=== PATIENT | female | born 1960 | race Caucasian/White ===

== ENCOUNTER 2017-06-27 11:25 | Emergency (ER) | payer OTHER ==
[~2017-06-27] VITALS: Ht 157.5 cm; Wt 83.9 kg
[~2017-06-27 11:25] MED LIST: AMLO1TAB PO; AMLO5TAB PO; CLON0.1T79 PO; FENO134C2 PO; IBUP-974 PO; LANTUS SUBQ; LORA-476 PO; LOSA25TA14 PO; [UNRECOGNIZED DRUG - OTHER] SUBQ
[2017-06-27 11:36] VITALS: BP 161/105
--- NOTE | 2017-06-27 11:43 | NUR ---
Patient ambulated to bed 8. RN evaluating patient at bedside.
--- NOTE | 2017-06-27 11:47 | NUR ---
PATIENT PRESENTS TO ED WITH C/O WEAKNESS SINCE LAST NOC . PT STATES SHE WAS BITTEN BY A BUG LAST NOC, AND HAS BEEN FEELING WEAK SINCE THAT TIME, BUT IS UNSURE IF THE INSECT BITE AND WEAKNESS ARE RELATED . DENIES N/V/D; MULTIPLE INSECT BITES NOTED TO RIGHT CALF, SKIN IS OTHERWISE PINK/WARM/DRY; AAOX4 WITH EVEN AND STEADY GAIT; LUNGS CLEAR BL; HR EVEN AND REGULAR; PT DENIES ANY FEVER, CP, SOB, OR COUGH AT THIS TIME; PATIENT STATES PAIN OF 8/10 AT THIS TIME; VSS; PATIENT POSITIONED FOR COMFORT; HOB ELEVATED; BEDRAILS UP X2; BED DOWN. ER MD MADE AWARE OF PT STATUS.
[2017-06-27] MEDS ORDERED: KETOROLAC 60 MG/2 ML VIAL IM ONE (12:05)
[2017-06-27 13:10] VITALS: BP 144/96
--- NOTE | 2017-06-27 13:10 | NUR ---
Patient discharged with v/s stable. Written and verbal after care instructions given and explained.Patient alert, oriented and verbalized understanding of instructions. Ambulatory with steady gait. All questions addressed prior to discharge. ID band removed. Patient advised to follow up with PMD. Rx of motrin, benadryl given. Patient educated on indication of medication including possible reaction and side effects. Opportunity to ask questions provided and answered.
== END 2017-06-27 13:10 | disposition home or self-care (01) ==
LOC: MED 11:25
DX: M54.5 Low back pain (principal); R53.1 Weakness; R21 Rash and other nonspecific skin eruption; J45.909 Unspecified asthma, uncomplicated; E78.00 Pure hypercholesterolemia, unspecified; E11.9 Type 2 diabetes mellitus without complications; I10 Essential (primary) hypertension; Z90.49 Acquired absence of other specified parts of digestive tract; Z79.4 Long term (current) use of insulin; Z79.899 Other long term (current) drug therapy
CPT/HCPCS: 81002; 81025; 96372; 99283; J1885

== ENCOUNTER 2018-07-22 01:15 | Emergency (ER) | payer OTHER ==
[~2018-07-22] VITALS: Ht 157.5 cm; Wt 86.2 kg
[2018-07-22 01:15] VITALS: BP 215/128
--- NOTE | 2018-07-22 01:15 | NUR ---
PT BIB BLS TO ER BED 2.
--- NOTE | 2018-07-22 01:15 | NUR ---
BIB EMS. PT CALLED 911 AFTER TAKING AN ADDITIONAL 18 UNITS. PT STATES N/V X1 DAY WITH SEVERE GASTON X1 DAY. HER HOME BLOOD GLUCOSE WAS 418. SHE TOOK TOO MUCH INSULIN AND DID NOT TAKE HOME ANTIHYPERTENSIVE MEDS D/T N/V. PT IS A&OX4. AMBULATED FROM [facility] TO BED 2. ER AWARE. CONTINUE TO MONITOR.
[2018-07-22] MEDS ORDERED: diphenhydrAMINE 50 MG/ML VIAL IVP ONE (01:30)
[2018-07-22] MEDS ORDERED: METOCLOPRAMIDE 10 MG/2 ML INJ VIAL IVP ONE (01:30)
[2018-07-22] MEDS ORDERED: LORazepam 2 MG/ML VIAL IVP ONE (01:30)
[2018-07-22] MEDS ORDERED: ONDANSETRON 4 MG/2 ML VIAL IVP ONE (01:30)
[2018-07-22] MEDS ORDERED: KETOROLAC 30 MG/ML VIAL IVP ONE (01:30)
[2018-07-22] MEDS ORDERED: cloNIDine 0.1 MG TAB PO ONE (01:30)
--- NOTE | 2018-07-22 01:34 | NUR ---
EKG PERFORMED AT BEDSIDE. PT COVERED IN GOWN DURING PROCEDURE
[2018-07-22 02:38] LABS: PROTHROMBIN TIME 9.8 secs (10.8-13.4)
[2018-07-22 02:43] LABS: ALBUMIN 3.5 g/dL (3.4-5.0); ANION GAP 12.6 (8-16); CARBON DIOXIDE 24.6 mmol/L (21-32); POTASSIUM 3.2 mmol/L (3.5-5.1); TOTAL BILIRUBIN 0.8 mg/dL (0.0-1.0)
[2018-07-22 02:44] LABS: HEMATOCRIT 41.5 % (36-48); MEAN CORPUSCULAR HEMOGLOBIN 32 pg (27-31); MEAN CORPUSCULAR HGB CONC 34 g/dL (33-37); MEAN CORPUSCULAR VOLUME 95.6 fL (80-94); PLATELET COUNT (AUTO) 328 K/uL (140-450); RED BLOOD CELL COUNT(AUTO) 4.33 MIL/uL (4.20-5.40); RED CELL DISTRIBUTION WIDTH 13.3 % (11.6-13.7); WHITE BLOOD COUNT (AUTO) 11.5 K/uL (4.8-10.8)
[2018-07-22 02:45] LABS: BASOPHILS % (AUTO) 0.2 % (0.0-2.0); EOSINOPHILS # (AUTO) 0.5 K/uL (0-0.4); LYMPHOCYTES # (AUTO) 2.5 K/uL (2.5-16.5); LYMPHOCYTES % (AUTO) 21.3 % (20.5-51.1); MONOCYTES # (AUTO) 0.6 K/uL (0.8-1.0); MONOCYTES % (AUTO) 5.1 % (1.7-9.3); NEUTROPHILS # (AUTO) 7.9 K/uL (1.8-7.7); NEUTROPHILS % (AUTO) 69.4 % (42.2-75.2)
[2018-07-22] MEDS ORDERED: POTASSIUM CHLORIDE 20% 40 MEQ/15 ML UDC PO ONE (04:00)
--- NOTE | 2018-07-22 04:15 | NUR ---
AWAITING DISCHARGE DIRECTIONS FROM DR LONGO.
[2018-07-22 05:22] VITALS: BP 116/59
--- NOTE | 2018-07-22 05:22 | NUR ---
Patient discharged with v/s stable. Written and verbal after care instructions given and explained. Patient alert, oriented and verbalized understanding of instructions. Ambulatory with steady gait. All questions addressed prior to discharge. ID band removed. Patient advised to follow up with PMD. Rx of Porfirio, Clonidine, Zofran, and Ativan given. Patient educated on indication of medication including possible reaction and side effects. Opportunity to ask questions provided and answered.
== END 2018-07-22 05:22 | disposition home or self-care (01) ==
LOC: MED 01:15
DX: I16.0 Hypertensive urgency (principal); J45.909 Unspecified asthma, uncomplicated; E11.9 Type 2 diabetes mellitus without complications; I10 Essential (primary) hypertension; Z86.73 Personal history of transient ischemic attack (TIA), and cerebral infarction without residual deficits; Z88.0 Allergy status to penicillin; Z79.899 Other long term (current) drug therapy
CPT/HCPCS: 36415; 70450; 71045; 80053; 83880; 84484; 85025; 85610; 85730; 93005; 96374; 96375; 99285; J1200; J1885; J2060; J2405; J2765; Q0092; 81002; 81025

== ENCOUNTER 2020-07-30 00:55 | Emergency (ER) | payer OTHER ==
[~2020-07-30] VITALS: Ht 157.5 cm; Wt 108.9 kg
[~2020-07-30 00:55] MED LIST changes: -LOSA25TA14 PO; +LOSA25TA32 PO
--- NOTE | 2020-07-30 00:58 | NUR ---
PT JOHANN BLS. TAKEN TO BED 7
--- NOTE | 2020-07-30 00:58 | NUR ---
Dr. Knott examining patient.
[2020-07-30 01:05] VITALS: BP 164/89
[2020-07-30] MEDS ORDERED: hydrOXYzine PAMOATE 25 MG CAP PO SCH (01:20)
--- NOTE | 2020-07-30 01:20 | NUR ---
providing relief for primary nurse Cherri ULONG. assumed pt care at this time.
--- NOTE | 2020-07-30 01:20 | NUR ---
60 year old female biba for c/o anxiety attack x 2 hours. states started around 2300 last night when she attempted to sleep and felt like she was not breathing. pt tachypneic upon triage in the 30s but now normal. respirations even and unlabored. CBL sounds. all other systems WNL. Awaiting MSE. pmhx: anxiety, HTN, DM, HLD,asthma allx: PCN
[2020-07-30 01:32] LABS: BASOPHILS # (AUTO) 0.1 K/uL (0.00-0.22); BASOPHILS % (AUTO) 0.6 % (0.0-2.0); EOSINOPHILS # (AUTO) 0.7 K/uL (0-0.4); EOSINOPHILS % (AUTO) 5.8 % (0.0-4.0); HEMATOCRIT 39.1 % (36-48); HEMOGLOBIN 13.6 g/dL (12.0-16.0); LYMPHOCYTES % (AUTO) 25.6 % (20.5-51.1); MEAN CORPUSCULAR HEMOGLOBIN 33 pg (27-31); MEAN CORPUSCULAR HGB CONC 35 g/dL (33-37); MEAN CORPUSCULAR VOLUME 94.6 fL (80-94); MONOCYTES # (AUTO) 0.8 K/uL (0.8-1.0); MONOCYTES % (AUTO) 6.6 % (1.7-9.3); NEUTROPHILS # (AUTO) 7.3 K/uL (1.8-7.7); NEUTROPHILS % (AUTO) 61.4 % (42.2-75.2); PLATELET COUNT (AUTO) 296 K/uL (140-450); RED BLOOD CELL COUNT(AUTO) 4.13 MIL/uL (4.20-5.40); RED CELL DISTRIBUTION WIDTH 13.4 % (11.6-13.7); WHITE BLOOD COUNT (AUTO) 11.9 K/uL (4.8-10.8)
--- NOTE | 2020-07-30 01:49 | NUR ---
Jovanni oneal in [facility] - 07/30/20 at 0156 by [facility] xr at bedside.
[2020-07-30 01:51] LABS: ALBUMIN 3.5 g/dL (3.4-5.0); ANION GAP 17.5 (8-16); CARBON DIOXIDE 22.6 mmol/L (21-32); POTASSIUM 3.1 mmol/L (3.5-5.1); TOTAL BILIRUBIN 0.5 mg/dL (0.0-1.0)
--- NOTE | 2020-07-30 01:52 | NUR ---
X-Ray at bedside.
[2020-07-30] MEDS ORDERED: PANTOPRAZOLE 40 MG INJ VIAL IVP ONE (02:10)
--- NOTE | 2020-07-30 02:24 | NUR ---
pt ambulated to restroom w/ steady gait.
--- NOTE | 2020-07-30 03:00 | NUR ---
IV removed, catheter intact and site benign. Applied folded 4x4 gauze and tape to stop bleeding.
[2020-07-30 03:04] VITALS: BP 172/85
--- NOTE | 2020-07-30 03:04 | NUR ---
Patient discharged with v/s stable. Written and verbal after care instructions given and explained. Patient alert, oriented and verbalized understanding of instructions. Ambulatory with steady gait. All questions addressed prior to discharge. ID band removed. Patient advised to follow up with PMD. Rx of PROTONIX given. Patient educated on indication of medication including possible reaction and side effects. Opportunity to ask questions provided and answered.
== END 2020-07-30 03:04 | disposition home or self-care (01) ==
LOC: MED 00:55
DX: R06.02 Shortness of breath (principal); K21.9 Gastro-esophageal reflux disease without esophagitis; J45.909 Unspecified asthma, uncomplicated; I11.0 Hypertensive heart disease with heart failure; E11.9 Type 2 diabetes mellitus without complications; Z86.73 Personal history of transient ischemic attack (TIA), and cerebral infarction without residual deficits; Z88.0 Allergy status to penicillin; Z79.899 Other long term (current) drug therapy
CPT/HCPCS: 36415; 71045; 80053; 84484; 85025; 93005; 96374; 99285; C9113; Q0092; Q0163

== ENCOUNTER 2020-11-01 13:44 | Emergency (ER) | payer OTHER ==
[~2020-11-01] VITALS: Ht 157.5 cm; Wt 90.7 kg
[2020-11-01 14:18] VITALS: BP 171/91
[2020-11-01] MEDS ORDERED: IBUPROFEN 600 MG TAB PO ONE (14:30)
--- NOTE | 2020-11-01 15:10 | NUR ---
Patient discharged with v/s stable. Written and verbal after care instructions about muscle strain and cervical sprain given and explained. Patient alert, oriented and verbalized understanding of instructions. Ambulatory with steady gait. All questions addressed prior to discharge. ID band removed. Patient advised to follow up with PMD. Rx of ibuprofen and flexeril given. Patient educated on indication of medication including possible reaction and side effects. Opportunity to ask questions provided and answered.
[2020-11-01 15:13] VITALS: BP 171/91
== END 2020-11-01 15:10 | disposition home or self-care (01) ==
LOC: MED 13:44
DX: S16.1XXA Strain of muscle, fascia and tendon at neck level, initial encounter (principal); S46.912A Strain of unspecified muscle, fascia and tendon at shoulder and upper arm level, left arm, initial encounter; S46.911A Strain of unspecified muscle, fascia and tendon at shoulder and upper arm level, right arm, initial encounter; J45.909 Unspecified asthma, uncomplicated; E11.9 Type 2 diabetes mellitus without complications; I10 Essential (primary) hypertension; Z88.0 Allergy status to penicillin; Z79.4 Long term (current) use of insulin; Z79.899 Other long term (current) drug therapy; Z86.73 Personal history of transient ischemic attack (TIA), and cerebral infarction without residual deficits; V89.2XXA Person injured in unspecified motor-vehicle accident, traffic, initial encounter; Y93.89 Activity, other specified; Y92.89 Other specified places as the place of occurrence of the external cause; Y99.8 Other external cause status
CPT/HCPCS: 99283

== ENCOUNTER 2022-01-03 16:33 | Emergency (ER) | payer OTHER ==
[~2022-01-03] VITALS: Ht 157.5 cm; Wt 94.3 kg
[~2022-01-03 16:33] MED LIST changes: +FENO134C18 PO; -FENO134C2 PO
[2022-01-03 16:48] VITALS: BP 201/104
--- NOTE | 2022-01-03 16:56 | NUR ---
PT AMB TO BED 12.
--- NOTE | 2022-01-03 18:52 | NUR ---
PATIENT PRESENTS TO ED WITH C/O DIZZINESS X TODAY AND C/O 8/10 MID CHEST PAIN RADIATING TO LEFT ARM X 3 DAYS. DENIES N/V/D; SKIN IS PINK/WARM/DRY; AAOX4 WITH EVEN AND STEADY GAIT; HR EVEN AND REGULAR; PT DENIES ANY FEVER, CP, SOB, OR COUGH AT THIS TIME; PATIENT POSITIONED FOR COMFORT; HOB ELEVATED; BEDRAILS UP X2; BED DOWN. ER MD MADE AWARE OF PT STATUS. PMH: HTN, DM, ANXIETY, ASTHMA, C SECTION, GALL BLADDER REMOVAL ALLERGY: PCN
[2022-01-03 19:03] LABS: BASOPHILS % (AUTO) 0.4 % (0.0-2.0); EOSINOPHILS # (AUTO) 0.1 K/uL (0-0.4); EOSINOPHILS % (AUTO) 1.1 % (0.0-4.0); HEMATOCRIT 39.8 % (36-48); HEMOGLOBIN 13.9 g/dL (12.0-16.0); LYMPHOCYTES # (AUTO) 2.3 K/uL (2.5-16.5); LYMPHOCYTES % (AUTO) 23.5 % (20.5-51.1); MEAN CORPUSCULAR HEMOGLOBIN 33 pg (27-31); MEAN CORPUSCULAR HGB CONC 35 g/dL (33-37); MEAN CORPUSCULAR VOLUME 95.6 fL (80-94); MONOCYTES # (AUTO) 0.5 K/uL (0.8-1.0); MONOCYTES % (AUTO) 5.3 % (1.7-9.3); NEUTROPHILS # (AUTO) 6.8 K/uL (1.8-7.7); NEUTROPHILS % (AUTO) 69.7 % (42.2-75.2); PLATELET COUNT (AUTO) 316 K/uL (140-450); RED BLOOD CELL COUNT(AUTO) 4.17 MIL/uL (4.20-5.40); RED CELL DISTRIBUTION WIDTH 13.2 % (11.6-13.7); WHITE BLOOD COUNT (AUTO) 9.8 K/uL (4.8-10.8)
--- NOTE | 2022-01-03 19:31 | NUR ---
Pt report given to CHERISE HAY. Transfer of care at this time.
[2022-01-03 19:38] LABS: ALBUMIN 3.6 g/dL (3.4-5.0); ANION GAP 15.1 (8-16); CARBON DIOXIDE 23.4 mmol/L (21-32); CREATININE 0.8 mg/dL (0.6-1.3); POTASSIUM 3.5 mmol/L (3.5-5.1); TOTAL BILIRUBIN 0.7 mg/dL (0.0-1.0)
[2022-01-03] MEDS: KETOROLAC 30 MG/ML VIAL IM ONE (20:14)
[2022-01-03] MEDS: CYCLOBENZAPRINE 10 MG TAB PO ONE (20:15)
[2022-01-03] MEDS: LIDOCAINE 5% 1 EA PATCH TP ONE (20:16)
[2022-01-03] MEDS ORDERED: CYCL-711 PO (21:57)
[2022-01-03] MEDS ORDERED: IBUP-2213 PO (21:57)
[2022-01-03] MEDS ORDERED: LID5T TP (21:57)
--- NOTE | 2022-01-03 22:08 | NUR ---
PATIENT CLEARED FOR DISHCARGE AT THIS TIME. ADVIZED TO FOLLOW UP WITH PCP AND RETURN IF CONDITION WORSENS. NO OTHER COMPLAINTS OR CONECRNS AFTER DISCHARGE TEACHING.
[2022-01-03 22:09] VITALS: BP 137/80
== END 2022-01-03 22:08 | disposition home or self-care (01) ==
LOC: MED 16:33
DX: R07.89 Other chest pain (principal); G89.29 Other chronic pain; M25.512 Pain in left shoulder; E11.9 Type 2 diabetes mellitus without complications; I11.9 Hypertensive heart disease without heart failure; J45.909 Unspecified asthma, uncomplicated; Z88.0 Allergy status to penicillin
CPT/HCPCS: 36415; 71045; 73030; 80053; 84484; 85025; 93005; 96372; 99285; J1885

== ENCOUNTER 2022-05-20 09:22 | Emergency (ER) | payer OTHER ==
[~2022-05-20] VITALS: Ht 157.5 cm; Wt 81.6 kg
[~2022-05-20 09:22] MED LIST changes: +CYCL-711 PO; +IBUP-2213 PO; +LID5T TP
[2022-05-20 09:25] VITALS: BP 159/92
--- NOTE | 2022-05-20 09:27 | NUR ---
[facility]
--- NOTE | 2022-05-20 09:49 | NUR ---
DR ANDRADE AT BEDSIDE FOR EVALUATION
[2022-05-20] MEDS ORDERED: MIDAZOLAM 2 MG/2 ML VIAL IVP ONE (09:55)
--- NOTE | 2022-05-20 10:04 | NUR ---
LAB AT BEDSIDE
--- NOTE | 2022-05-20 10:11 | NUR ---
RADIOLOGY AT BEDSIDE
[2022-05-20 10:56] LABS: BASOPHILS % (AUTO) 0.5 % (0.0-2.0); EOSINOPHILS # (AUTO) 0.3 K/uL (0-0.4); EOSINOPHILS % (AUTO) 2.9 % (0.0-4.0); HEMATOCRIT 40.2 % (36-48); HEMOGLOBIN 14.1 g/dL (12.0-16.0); LYMPHOCYTES # (AUTO) 2.4 K/uL (2.5-16.5); LYMPHOCYTES % (AUTO) 23.9 % (20.5-51.1); MEAN CORPUSCULAR HEMOGLOBIN 33 pg (27-31); MEAN CORPUSCULAR HGB CONC 35 g/dL (33-37); MONOCYTES # (AUTO) 0.5 K/uL (0.8-1.0); MONOCYTES % (AUTO) 5.5 % (1.7-9.3); NEUTROPHILS # (AUTO) 6.8 K/uL (1.8-7.7); NEUTROPHILS % (AUTO) 67.2 % (42.2-75.2); PLATELET COUNT (AUTO) 295 K/uL (140-450); RED BLOOD CELL COUNT(AUTO) 4.23 MIL/uL (4.20-5.40); RED CELL DISTRIBUTION WIDTH 13.1 % (11.6-13.7); WHITE BLOOD COUNT (AUTO) 10.1 K/uL (4.8-10.8)
[2022-05-20 11:00] LABS: ALBUMIN 3.3 g/dL (3.4-5.0); ANION GAP 14.6 (8-16); ASPARTATE AMINOTRANSFERASE 18 U/L (15-37); CARBON DIOXIDE 23.2 mmol/L (21-32); CHLORIDE 102 mmol/L (98-107); CREATININE 0.9 mg/dL (0.6-1.3); GFR ARICAN-AMERICAN 82 mL/min (>90); GLUCOSE 310 mg/dL (74-106); POTASSIUM 3.8 mmol/L (3.5-5.1); SODIUM SERUM 136 mmol/L (136-145); TOTAL BILIRUBIN 0.7 mg/dL (0.0-1.0); UREA NITROGEN, BLOOD 13 mg/dL (7-18)
--- NOTE | 2022-05-20 13:31 | NUR ---
PT AMBULATED TO RESTROOM WITH STEADY GAIT.
[2022-05-20] MEDS ORDERED: HYDR-637 PO (13:39)
[2022-05-20 14:19] VITALS: BP 142/90
--- NOTE | 2022-05-20 14:20 | NUR ---
Patient discharged with v/s stable. Written and verbal after care instructions given and explained. Patient alert, oriented and verbalized understanding of instructions. Ambulatory with steady gait. All questions addressed prior to discharge. ID band removed. Patient advised to follow up with PMD. Rx of hydroxyzine given. Patient educated on indication of medication including possible reaction and side effects. Opportunity to ask questions provided and answered.
== END 2022-05-20 14:20 | disposition home or self-care (01) ==
LOC: MED 09:22
DX: R07.9 Chest pain, unspecified (principal); F41.9 Anxiety disorder, unspecified; I10 Essential (primary) hypertension; J45.909 Unspecified asthma, uncomplicated; E11.9 Type 2 diabetes mellitus without complications; I25.10 Atherosclerotic heart disease of native coronary artery without angina pectoris; Z86.73 Personal history of transient ischemic attack (TIA), and cerebral infarction without residual deficits; Z79.4 Long term (current) use of insulin; Z79.899 Other long term (current) drug therapy
CPT/HCPCS: 36415; 71045; 80053; 84484; 85025; 93005; 96374; 99285; J2250

== ENCOUNTER 2022-10-27 18:19 | Emergency (ER) | payer OTHER ==
[~2022-10-27] VITALS: Ht 157.5 cm; Wt 94.8 kg
[~2022-10-27 18:19] MED LIST changes: -FENO134C18 PO; +FENO134C23 PO; +HYDR-637 PO
[2022-10-27 18:33] VITALS: BP 170/95
[2022-10-27] MEDS ORDERED: NAPR-54 PO (20:49)
[2022-10-27] MEDS ORDERED: CYCL-711 PO (20:49)
--- NOTE | 2022-10-27 21:17 | NUR ---
PT SEEN AND ASSESSED BY EDA GABRIEL. Written and verbal after care instructions given and explained. Patient alert, oriented and verbalized understanding of instructions. Ambulatory with steady gait. All questions addressed prior to discharge. ID band removed. Patient advised to follow up with PMD. Rx of FLEXERIL AND NAPROXEN given. Patient educated on indication of medication including possible reaction and side effects. Opportunity to ask questions provided and answered.
== END 2022-10-27 21:17 | disposition home or self-care (01) ==
LOC: MED 18:19
DX: S83.92XA Sprain of unspecified site of left knee, initial encounter (principal); S83.91XA Sprain of unspecified site of right knee, initial encounter; M25.531 Pain in right wrist; J45.909 Unspecified asthma, uncomplicated; I10 Essential (primary) hypertension; E11.9 Type 2 diabetes mellitus without complications; E78.00 Pure hypercholesterolemia, unspecified; Z86.73 Personal history of transient ischemic attack (TIA), and cerebral infarction without residual deficits; W18.30XA Fall on same level, unspecified, initial encounter; Y93.89 Activity, other specified; Y92.89 Other specified places as the place of occurrence of the external cause; Y99.8 Other external cause status
CPT/HCPCS: 73110; 73562; 99284

== ENCOUNTER 2022-11-01 19:28 | Emergency (ER) | payer OTHER ==
[~2022-11-01] VITALS: Ht 157.5 cm; Wt 94.8 kg
[~2022-11-01 19:28] MED LIST changes: +NAPR-54 PO
[2022-11-01] MEDS ORDERED: TRAM-748 PO (19:57)
--- NOTE | 2022-11-01 20:02 | NUR ---
D/C BY . Patient discharged with v/s stable. Written and verbal after care instructions given and explained. Patient alert, oriented and verbalized understanding of instructions. Ambulatory with steady gait. All questions addressed prior to discharge. ID band removed. Patient advised to follow up with PMD. Rx of TRAMADOL given. Patient educated on indication of medication including possible reaction and side effects. Opportunity to ask questions provided and answered.
== END 2022-11-01 20:02 | disposition home or self-care (01) ==
LOC: MED 19:28
DX: S83.91XA Sprain of unspecified site of right knee, initial encounter (principal); J45.909 Unspecified asthma, uncomplicated; E11.9 Type 2 diabetes mellitus without complications; I10 Essential (primary) hypertension; Z86.73 Personal history of transient ischemic attack (TIA), and cerebral infarction without residual deficits; Z86.69 Personal history of other diseases of the nervous system and sense organs; Z79.899 Other long term (current) drug therapy; Z79.891 Long term (current) use of opiate analgesic; Z79.1 Long term (current) use of non-steroidal anti-inflammatories (NSAID); Z79.4 Long term (current) use of insulin; Z88.0 Allergy status to penicillin; W18.39XA Other fall on same level, initial encounter; Y92.89 Other specified places as the place of occurrence of the external cause; Y93.89 Activity, other specified; Y99.8 Other external cause status
CPT/HCPCS: 99283

== ENCOUNTER 2023-09-23 16:04 | Emergency (ER) | payer OTHER ==
[~2023-09-23] VITALS: Ht 157.5 cm; Wt 90.7 kg
[~2023-09-23 16:04] MED LIST changes: +TRAM-748 PO
[2023-09-23 17:06] LABS: BASOPHILS # (AUTO) 0.1 K/uL (0.00-0.22); BASOPHILS % (AUTO) 0.7 % (0.0-2.0); EOSINOPHILS # (AUTO) 0.6 K/uL (0-0.4); EOSINOPHILS % (AUTO) 5.4 % (0.0-4.0); HEMATOCRIT 41.2 % (36-48); HEMOGLOBIN 14.4 g/dL (12.0-16.0); LYMPHOCYTES # (AUTO) 2.6 K/uL (2.5-16.5); LYMPHOCYTES % (AUTO) 22.9 % (20.5-51.1); MEAN CORPUSCULAR HEMOGLOBIN 34 pg (27-31); MEAN CORPUSCULAR HGB CONC 35 g/dL (33-37); MEAN CORPUSCULAR VOLUME 95.9 fL (80-94); MONOCYTES # (AUTO) 0.5 K/uL (0.8-1.0); MONOCYTES % (AUTO) 4.8 % (1.7-9.3); NEUTROPHILS # (AUTO) 7.4 K/uL (1.8-7.7); NEUTROPHILS % (AUTO) 66.2 % (42.2-75.2); PLATELET COUNT (AUTO) 320 K/uL (140-450); RED BLOOD CELL COUNT(AUTO) 4.29 MIL/uL (4.20-5.40); RED CELL DISTRIBUTION WIDTH 13.5 % (11.6-13.7); WHITE BLOOD COUNT (AUTO) 11.2 K/uL (4.8-10.8)
[2023-09-23] MEDS ORDERED: LIDOCAINE 4% PATCH 1 EA PATCH TP ONE (17:10)
[2023-09-23] MEDS ORDERED: ACETAMINOPHEN EXTRA STRENGTH 500 MG TAB PO ONE (17:10)
[2023-09-23 17:22] LABS: ALBUMIN 3.7 g/dL (3.4-5.0); ANION GAP 13.9 (8-16); CARBON DIOXIDE 26.7 mmol/L (21-32); CREATININE 0.9 mg/dL (0.6-1.3); POTASSIUM 3.6 mmol/L (3.5-5.1)
[2023-09-23 17:24] VITALS: BP 158/86; PULSE 100; RESP 18; TEMP 97.8; O2SAT 97
[2023-09-23] MEDS ORDERED: ACET-10509 PO (18:09)
[2023-09-23] MEDS ORDERED: CYCL-711 PO (18:09)
[2023-09-23] MEDS ORDERED: LID5T TP (18:09)
[2023-09-23 18:31] VITALS: BP 134/82; PULSE 100; RESP 17; TEMP 98.1; O2SAT 97
== END 2023-09-23 18:28 | disposition home or self-care (01) ==
LOC: MED 16:04
DX: S29.011A Strain of muscle and tendon of front wall of thorax, initial encounter (principal); I10 Essential (primary) hypertension; J45.909 Unspecified asthma, uncomplicated; E78.00 Pure hypercholesterolemia, unspecified; E11.9 Type 2 diabetes mellitus without complications; F41.9 Anxiety disorder, unspecified; Z86.73 Personal history of transient ischemic attack (TIA), and cerebral infarction without residual deficits; Z86.69 Personal history of other diseases of the nervous system and sense organs; Z90.49 Acquired absence of other specified parts of digestive tract; Z90.710 Acquired absence of both cervix and uterus; Z79.899 Other long term (current) drug therapy; Z79.1 Long term (current) use of non-steroidal anti-inflammatories (NSAID); Z79.4 Long term (current) use of insulin; Z88.0 Allergy status to penicillin; X50.0XXA Overexertion from strenuous movement or load, initial encounter; Y92.89 Other specified places as the place of occurrence of the external cause; Y93.89 Activity, other specified; Y99.8 Other external cause status
CPT/HCPCS: 36415; 71045; 80053; 83880; 84484; 85025; 85379; 93005; 99285

== ENCOUNTER 2024-03-14 15:22 | Emergency (ER) | payer OTHER ==
[~2024-03-14] VITALS: Ht 157.5 cm; Wt 95.3 kg
[~2024-03-14 15:22] MED LIST changes: +ACET-10509 PO; +NAPR-337 PO; -NAPR-54 PO
[2024-03-14 15:23] VITALS: BP 186/114; PULSE 109; RESP 18; TEMP 97.9; O2SAT 92
[2024-03-14] MEDS: NACL 0.9% 1,000 ML IV ONE ×2 (16:00→17:55)
[2024-03-14 16:30] VITALS: TEMP 97.5
[2024-03-14 16:55] LABS: BASOPHILS % (AUTO) 0.1 % (0.0-2.0); EOSINOPHILS # (AUTO) 0.1 K/uL (0-0.4); EOSINOPHILS % (AUTO) 1.3 % (0.0-4.0); HEMOGLOBIN 14.3 g/dL (12.0-16.0); LYMPHOCYTES # (AUTO) 1.5 K/uL (2.5-16.5); LYMPHOCYTES % (AUTO) 13.9 % (20.5-51.1); MEAN CORPUSCULAR HEMOGLOBIN 34 pg (27-31); MEAN CORPUSCULAR HGB CONC 36 g/dL (33-37); MEAN CORPUSCULAR VOLUME 95.8 fL (80-94); MONOCYTES # (AUTO) 0.5 K/uL (0.8-1.0); MONOCYTES % (AUTO) 4.3 % (1.7-9.3); NEUTROPHILS # (AUTO) 8.6 K/uL (1.8-7.7); NEUTROPHILS % (AUTO) 80.4 % (42.2-75.2); PLATELET COUNT (AUTO) 337 K/uL (140-450); RED BLOOD CELL COUNT(AUTO) 4.18 MIL/uL (4.20-5.40); RED CELL DISTRIBUTION WIDTH 12.8 % (11.6-13.7); WHITE BLOOD COUNT (AUTO) 10.7 K/uL (4.8-10.8)
[2024-03-14 17:25] LABS: ALANINE AMINOTRANSFERASE 30 U/L (12-78); ALBUMIN 3.2 g/dL (3.4-5.0); ALKALINE PHOSPHATASE 96 U/L (50-136); ANION GAP 12.3 (8-16); ASPARTATE AMINOTRANSFERASE 34 U/L (15-37); CALCIUM 8.3 mg/dL (8.5-10.1); CARBON DIOXIDE 25.2 mmol/L (21-32); CHLORIDE 99 mmol/L (98-107); CREATININE 0.9 mg/dL (0.6-1.3); GFR ARICAN-AMERICAN 81 mL/min (>90); GFR NON ARICAN-AMERICAN 67 mL/min (>90); POTASSIUM 3.5 mmol/L (3.5-5.1); SODIUM SERUM 133 mmol/L (136-145); TOTAL BILIRUBIN 0.9 mg/dL (0.0-1.0); TOTAL PROTEIN, SERUM 7.5 g/dL (6.4-8.2); UREA NITROGEN, BLOOD 13 mg/dL (7-18)
[2024-03-14 17:29] LABS: GLUCOSE 432 mg/dL (74-106)
[2024-03-14 17:47] LABS: APPEARANCE,URINE CLEAR (CLEAR); BILIRUBIN,URINE NEGATIVE (NEGATIVE); BLOOD, URINE NEGATIVE (NEGATIVE); COLOR,URINE YELLOW (YELLOW); LEUKOCYTE ESTERASE ,URINE NEGATIVE (NEGATIVE); NITRITE, URINE NEGATIVE (NEGATIVE); PROTEIN,URINE TRACE (NEGATIVE); UGLUCOSE 3+ (NEGATIVE); UROBILINOGEN,URINE 0.2 EU/dL (0.2 - 1)
[2024-03-14 17:51] LABS: RBC,URINE 0-5 /HPF (0-5); WBC,URINE 0 /HPF (0-5)
[2024-03-14 17:53] LABS: BACTERIA,URINE 0-2 /HPF (None Seen); MUCUS,URINE None Seen /LPF (None Seen); SQUAMOUS EPITHELIAL CELL,UR 0-3 (FEW) /LPF (0-3 (FEW))
[2024-03-14 19:25] VITALS: BP 175/94; PULSE 93; RESP 15; O2SAT 95
[2024-03-14] MEDS: ACETAMINOPHEN EXTRA STRENGTH 500 MG TAB PO ONE (19:56)
== END 2024-03-14 20:34 | disposition home or self-care (01) ==
LOC: MED 15:22
DX: R55 Syncope and collapse (principal); E11.65 Type 2 diabetes mellitus with hyperglycemia; J45.909 Unspecified asthma, uncomplicated; E78.00 Pure hypercholesterolemia, unspecified; I10 Essential (primary) hypertension; Z86.73 Personal history of transient ischemic attack (TIA), and cerebral infarction without residual deficits; Z86.69 Personal history of other diseases of the nervous system and sense organs; Z79.899 Other long term (current) drug therapy; Z79.4 Long term (current) use of insulin; Z88.0 Allergy status to penicillin
CPT/HCPCS: 36415; 71045; 80053; 81001; 82948; 84484; 85025; 93005; 96360; 96361; 99285; J7030

== ENCOUNTER 2024-04-25 22:06 | Emergency (ER) | payer OTHER ==
[~2024-04-25] VITALS: Ht 165.1 cm; Wt 93.0 kg
[2024-04-25 22:12] VITALS: BP 156/88; PULSE 16; RESP 18; TEMP 99; O2SAT 99
[2024-04-25 23:57] VITALS: O2SAT 99
[2024-04-26] MEDS: KETOROLAC 30 MG/ML VIAL IM ONE (00:18)
[2024-04-26] MEDS: diazePAM 5 MG TAB PO ONE (00:20)
[2024-04-26] MEDS ORDERED: CYCL-711 PO (01:41)
[2024-04-26] MEDS ORDERED: NAPR-1704 PO (01:41)
[2024-04-26 01:58] VITALS: BP 156/88; PULSE 16; RESP 18; TEMP 99; O2SAT 99
== END 2024-04-26 01:57 | disposition home or self-care (01) ==
LOC: MED 22:06
DX: M54.41 Lumbago with sciatica, right side (principal); S16.1XXA Strain of muscle, fascia and tendon at neck level, initial encounter; S09.90XA Unspecified injury of head, initial encounter; J45.909 Unspecified asthma, uncomplicated; E11.9 Type 2 diabetes mellitus without complications; I10 Essential (primary) hypertension; E78.5 Hyperlipidemia, unspecified; Z79.1 Long term (current) use of non-steroidal anti-inflammatories (NSAID); Z79.4 Long term (current) use of insulin; Z79.899 Other long term (current) drug therapy; Z88.0 Allergy status to penicillin; V89.2XXA Person injured in unspecified motor-vehicle accident, traffic, initial encounter; Y93.89 Activity, other specified; Y92.89 Other specified places as the place of occurrence of the external cause; Y99.8 Other external cause status
CPT/HCPCS: 70450; 72131; 96372; 99285; J1885